=== PATIENT | male | born 1940 | race Caucasian/White ===

== ENCOUNTER 2017-11-22 16:08 | Inpatient (IN) | payer MEDICARE ==
[~2017-11-22] VITALS: Ht 165.1 cm; Wt 70.8 kg
--- NOTE | 2017-11-22 16:38 | NUR ---
PATIENT IS AWAKE AND ALERT. HE IS COOPERATIVE AT THIS TIME. DENIES PAIN.
[2017-11-22 17:12] LABS: BASOPHILS # (AUTO) 0.1 K/uL (0.0-8.0); EOSINOPHILS # (AUTO) 0.1 K/uL (0.0-0.7); HEMATOCRIT 38.3 % (36.7-47.1); HEMOGLOBIN 12.9 g/dL (12.5-16.3); LYMPHOCYTES % (AUTO) 27.2 % (20.5-51.5); MEAN CORPUSCULAR HGB CONC 34 g/dL (32.5-36.3); MEAN CORPUSCULAR VOLUME 98.2 fL (73.0-96.2); MONOCYTES # (AUTO) 0.5 K/uL (2.0-10.0); MONOCYTES % (AUTO) 7.4 % (0.0-11.0); NEUTROPHILS # (AUTO) 4.6 K/uL (1.8-8.9); NEUTROPHILS % (AUTO) 62.4 % (38.5-71.5); PLATELET COUNT (AUTO) 240 K/uL (152-348); WHITE BLOOD COUNT (AUTO) 7.3 K/uL (3.6-10.2)
[2017-11-22 17:21] LABS: ETHANOL < 3 MG/DL (0-0)
--- NOTE | 2017-11-22 17:22 | NUR ---
AWAITING TEST RESULTS.
[2017-11-22 17:25] LABS: CARBON DIOXIDE 29 mmol/L (21-32); CHLORIDE 101 mmol/L (98-107); CREATININE 1.2 mg/dL (0.6-1.3); GLUCOSE 101 mg/dL (74-106); POTASSIUM 4.9 mmol/L (3.5-5.1); UREA NITROGEN, BLOOD 17 mg/dL (7-18)
[2017-11-22 17:37] LABS: ACETAMINOPHEN < 2.0 ug/mL (10-30); ALANINE AMINOTRANSFERASE 17 U/L (16-63); ALKALINE PHOSPHATASE 70 U/L (50-136); ASPARTATE AMINOTRANSFERASE 17 U/L (15-37); BILIRUBIN,DIRECT 0.1 mg/dL (0.0-0.2); BILIRUBIN,TOTAL 0.2 mg/dL (0.2-1.0)
[2017-11-22] MEDS ORDERED: MELA3TAB PO (17:50)
[2017-11-22] MEDS ORDERED: DONE10TA44 PO (17:50)
[2017-11-22] MEDS ORDERED: ACET325T53 PO (17:50)
[2017-11-22] MEDS ORDERED: BISA10SU12 RC (17:50)
[2017-11-22] MEDS ORDERED: ASPI81TA31 PO (17:50)
[2017-11-22] MEDS ORDERED: THIA100T13 PO (17:50)
[2017-11-22] MEDS ORDERED: HYDR-3326 PO (17:50)
[2017-11-22] MEDS ORDERED: CLON0.1T PO (17:50)
[2017-11-22] MEDS ORDERED: SIMV40TA5 PO (17:50)
[2017-11-22] MEDS ORDERED: LISI10TA5 PO (17:50)
[2017-11-22] MEDS ORDERED: FOLI1TAB16 PO (17:50)
[2017-11-22] MEDS ORDERED: LAMO150T PO (17:50)
[2017-11-22] MEDS ORDERED: LEVE500T20 PO (17:50)
[2017-11-22] MEDS ORDERED: MAGN400O6 PO (17:50)
[2017-11-22 18:31] LABS: *BILIRUBIN,URIN NEGATIVE (NEGATIVE); *BLOOD, URINE NEGATIVE (NEGATIVE); *CLARITY,URINE CLEAR (CLEAR); *COLOR,URINE YELLOW (YELLOW); *KETONES,URINE NEGATIVE (NEGATIVE); *PROTEIN,URINE NEGATIVE (NEGATIVE); *UROBILINOGEN,URINE 0.2 E.U./dl (NORMAL); LEUKOCYTE ESTERASE ,URINE NEGATIVE (NEGATIVE); NITRITE, URINE NEGATIVE (NEGATIVE); PH,URINE 6.5 (5.0-8.0); UGLUCOSE NEGATIVE (NEGATIVE)
--- NOTE | 2017-11-22 18:33 | NUR ---
CLINTON REYES MORPHOLOGIST HERE FOR EVAL. PATIENT ATE DINNER.
[2017-11-22 18:48] LABS: *AMPHETAMINE, URINE NEGATIVE (NEGATIVE); *BARBITURATE, URINE NEGATIVE (NEGATIVE); *CANNABINOID, URINE POSITIVE (NEGATIVE); *COCCAINE, URINE NEGATIVE (NEGATIVE); *OPIATE, URINE POSITIVE (NEGATIVE); *PHENCYCLIDINE SCREEN,URINE NEGATIVE (NEGATIVE)
--- NOTE | 2017-11-22 19:06 | NUR ---
HANDOFF REPORT GIVEN TO VANDANA PAGE
[2017-11-22 19:25] LABS: BACTERIA,URINE NONE SEEN /HPF (NONE SEEN); RBC,URINE 0-3 /HPF (0-3); SQUAMOUS EPITHELIAL CELL,UR NONE SEEN /HPF (NONE SEEN); WBC,URINE 0-3 /HPF (0-3)
--- NOTE | 2017-11-22 19:40 | NUR ---
Report given to [facility].
[2017-11-22] MEDS ORDERED: ACETAMINOPHEN 325 MG TABLET PO PRN (20:15)
[2017-11-22] MEDS ORDERED: MAGNESIUM HYDROXIDE 30 ML LIQUID UDC PO PRN (20:15)
[2017-11-22] MEDS ORDERED: MAG HYDROX/AL HYDROX/SIMETH 30 ML LIQUID UDC PO PRN (20:15)
[2017-11-22 21:01] VITALS: BP 140/70
[2017-11-22] MEDS: LEVETIRACETAM 500 MG TABLET PO SCH (21:40)
[2017-11-22] MEDS: TEMAZEPAM 7.5 MG CAPSULE PO PRN (21:40)
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
--- NOTE | 2017-11-23 06:00 | NUR ---
slept 6.5 hours. came to nurses station, appearing angry, demanding his "papers i had in my pocket". "if i dont gety it, i will tear this place up". papers were founfd in his nightstand, and he deescalated.
[2017-11-23 07:30] VITALS: BP 120/61
[2017-11-23] MEDS: NICOTINE 21 MG/24HR PATCH TD SCH (07:32)
[2017-11-23] MEDS ORDERED: CLONIDINE HCL 0.1 MG TABLET PO PRN (08:30)
[2017-11-23] MEDS ORDERED: MAGNESIUM HYDROXIDE 30 ML LIQUID UDC PO PRN (08:30)
[2017-11-23] MEDS ORDERED: HYDROCODONE/APAP 5-325MG TABLET PO PRN (08:30)
[2017-11-23] MEDS ORDERED: BISACODYL 10 MG SUPP.RECT RC PRN (08:30)
[2017-11-23] MEDS ORDERED: ACETAMINOPHEN 325 MG TABLET PO PRN ×2 (08:30)
[2017-11-23] MEDS ORDERED: LEVETIRACETAM 500 MG TABLET PO SCH (09:00)
[2017-11-23] MEDS: ASPIRIN 81 MG TAB.CHEW PO SCH (10:39)
[2017-11-23] MEDS: FOLIC ACID 1 MG TABLET PO SCH (10:40)
[2017-11-23] MEDS: LISINOPRIL 10 MG TABLET PO SCH (10:40)
[2017-11-23] MEDS: LEVETIRACETAM 500 MG TABLET PO SCH ×2 (10:40→20:32)
[2017-11-23] MEDS: THIAMINE HCL 100 MG TABLET PO SCH (10:41)
[2017-11-23] MEDS: LAMOTRIGINE 100 MG TABLET PO SCH ×2 (12:32→20:33)
[2017-11-23 14:55] VITALS: BP 110/57
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
--- NOTE | 2017-11-23 17:51 | NUR ---
Gps/Child Development Assistant- Cooperative, pleasant had been re directable, interacting with his roommate.
[2017-11-23] MEDS ORDERED: NICOTINE 21 MG/24HR PATCH TD ONE (18:46)
[2017-11-23] MEDS: MIRTAZAPINE 15 MG TABLET PO SCH (20:33)
[2017-11-23] MEDS: SIMVASTATIN 40 MG TABLET PO SCH (20:33)
[2017-11-23 21:55] VITALS: BP 92/56
--- NOTE | 2017-11-23 22:00 | NUR ---
received to care, pleasant upon approach, interacting minimally with peers, mostly isolative. compliant with medications and staff direction. as of 2199, he appears to be asleep. no distress noted. will continue to monitor closely.
[2017-11-24] MEDS: TEMAZEPAM 7.5 MG CAPSULE PO PRN ×2 (00:20→23:56)
--- NOTE | 2017-11-24 00:20 | NUR ---
PRN restoril given, for insomnia.
--- NOTE | 2017-11-24 03:00 | NUR ---
pt came out to nurses station, requesting beer. pt was told that we don't serve alcohol here, but he could have some apple juice. he then asked "where am i ?" he was reoriented, and he said he just had a dream and thought people were after him. he went back to his room, and went back to bed.
--- NOTE | 2017-11-24 03:30 | NUR ---
appears to be asleep. no distress noted.
--- NOTE | 2017-11-24 06:00 | NUR ---
slept 8.5 hours, total. continues to sleep. no distress noted.
[2017-11-24 07:30] VITALS: BP 124/65
[2017-11-24] MEDS: THIAMINE HCL 100 MG TABLET PO SCH (08:48)
[2017-11-24] MEDS: LEVETIRACETAM 500 MG TABLET PO SCH ×2 (08:48→20:25)
[2017-11-24] MEDS: ASPIRIN 81 MG TAB.CHEW PO SCH (08:48)
[2017-11-24] MEDS: FOLIC ACID 1 MG TABLET PO SCH (08:48)
[2017-11-24] MEDS: LAMOTRIGINE 100 MG TABLET PO SCH ×2 (08:49→20:25)
[2017-11-24] MEDS: LISINOPRIL 10 MG TABLET PO SCH (08:49)
[2017-11-24] MEDS: NICOTINE 21 MG/24HR PATCH TD SCH (08:50)
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
[2017-11-24] MEDS: LORAZEPAM 0.5 MG TABLET PO PRN (15:18)
--- NOTE | 2017-11-24 15:22 | NUR ---
Gps/Ring Cutter Lathe Operator-Admits to being anxious this pm, requesting anti-anxiety med., ativan 0.5 mg 1 tab reoffered.
[2017-11-24 15:33] VITALS: BP 128/66
[2017-11-24] MEDS: SIMVASTATIN 40 MG TABLET PO SCH (20:24)
[2017-11-24] MEDS: MIRTAZAPINE 15 MG TABLET PO SCH (20:25)
[2017-11-24 21:11] VITALS: BP 108/63
[2017-11-25] MEDS: LORAZEPAM 0.5 MG TABLET PO PRN (06:32)
[2017-11-25 07:30] VITALS: BP 104/71
--- NOTE | 2017-11-25 07:30 | NUR ---
Shift report given by nightshift RN. Pt without significant change in condition during noc shift. Rec'd pt awake, watching TV in the dayroom. No s/s of acute distress noted. Irritable on approach. Complaining about breakfast not being delivered yet. Reassured pt that breakfast is on the way. Pt became more agitated. Will continue to monitor for further behavioral manifestations.
[2017-11-25] MEDS: FOLIC ACID 1 MG TABLET PO SCH (08:29)
[2017-11-25] MEDS: ASPIRIN 81 MG TAB.CHEW PO SCH (08:29)
[2017-11-25] MEDS: LEVETIRACETAM 500 MG TABLET PO SCH ×2 (08:29→20:09)
[2017-11-25] MEDS: LAMOTRIGINE 100 MG TABLET PO SCH ×2 (08:30→20:08)
[2017-11-25] MEDS: NICOTINE 21 MG/24HR PATCH TD SCH (08:32)
[2017-11-25] MEDS: THIAMINE HCL 100 MG TABLET PO SCH (08:32)
[2017-11-25] MEDS: LISINOPRIL 10 MG TABLET PO SCH (08:40)
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
--- NOTE | 2017-11-25 18:42 | NUR ---
Pt remained in fair condition during shift. No significant change in condition. Took all due meds. Noted with x1 episode of agitation in am when pt was looking for his breakfast tray. No further episode of agitation noted. Pt was up in dayroom participating in activities of choice for the day. Interacts well with peers. Denies pain. All needs met at this time. Will continue to monitor for change.
[2017-11-25 20:00] VITALS: BP 113/65
[2017-11-25] MEDS: MIRTAZAPINE 15 MG TABLET PO SCH (20:08)
[2017-11-25] MEDS: SIMVASTATIN 40 MG TABLET PO SCH (20:08)
[2017-11-25] MEDS: TEMAZEPAM 7.5 MG CAPSULE PO PRN (22:06)
[2017-11-26 07:30] VITALS: BP 156/76
[2017-11-26] MEDS: LEVETIRACETAM 500 MG TABLET PO SCH ×2 (08:50→20:02)
[2017-11-26] MEDS: NICOTINE 21 MG/24HR PATCH TD SCH (08:50)
[2017-11-26] MEDS: ASPIRIN 81 MG TAB.CHEW PO SCH (08:51)
[2017-11-26] MEDS: LISINOPRIL 10 MG TABLET PO SCH (08:51)
[2017-11-26] MEDS: FOLIC ACID 1 MG TABLET PO SCH (08:51)
[2017-11-26] MEDS: THIAMINE HCL 100 MG TABLET PO SCH (08:51)
[2017-11-26] MEDS: LAMOTRIGINE 100 MG TABLET PO SCH ×2 (08:51→20:02)
[2017-11-26 16:20] VITALS: BP 100/53
[2017-11-26 19:49] VITALS: BP 90/46
--- NOTE | 2017-11-26 19:50 | NUR ---
Received patient in bed, asleep but arouseable to stimuli. A/O x3, cooperative and no agitations noted. Vitals signs taken and recorded. BP 90/46 noted will recheck later. Safety precautions provided. Pertinent assessment done. Will continue to monitor the patient.
[2017-11-26] MEDS: MIRTAZAPINE 15 MG TABLET PO SCH (20:01)
[2017-11-26] MEDS: SIMVASTATIN 40 MG TABLET PO SCH (20:02)
[2017-11-26 20:21] VITALS: BP 102/54
[2017-11-26] MEDS: TEMAZEPAM 7.5 MG CAPSULE PO PRN (23:17)
[2017-11-27 07:59] VITALS: BP 119/62
[2017-11-27] MEDS: NICOTINE 21 MG/24HR PATCH TD SCH (08:11)
[2017-11-27] MEDS: LEVETIRACETAM 500 MG TABLET PO SCH ×2 (08:11→20:09)
[2017-11-27] MEDS: LAMOTRIGINE 100 MG TABLET PO SCH ×2 (08:12→20:09)
[2017-11-27] MEDS: THIAMINE HCL 100 MG TABLET PO SCH (08:12)
[2017-11-27] MEDS: LISINOPRIL 10 MG TABLET PO SCH (08:12)
[2017-11-27] MEDS: ASPIRIN 81 MG TAB.CHEW PO SCH (08:12)
[2017-11-27] MEDS: FOLIC ACID 1 MG TABLET PO SCH (08:12)
[2017-11-27 16:46] VITALS: BP 107/55
[2017-11-27 19:45] VITALS: BP 105/59
[2017-11-27] MEDS: SIMVASTATIN 40 MG TABLET PO SCH (20:09)
[2017-11-27] MEDS: MIRTAZAPINE 15 MG TABLET PO SCH (20:09)
[2017-11-28 07:30] VITALS: BP 137/69
[2017-11-28] MEDS: LEVETIRACETAM 500 MG TABLET PO SCH (09:05)
[2017-11-28] MEDS: ASPIRIN 81 MG TAB.CHEW PO SCH (09:05)
[2017-11-28] MEDS: FOLIC ACID 1 MG TABLET PO SCH (09:05)
[2017-11-28] MEDS: LAMOTRIGINE 100 MG TABLET PO SCH (09:05)
[2017-11-28] MEDS: THIAMINE HCL 100 MG TABLET PO SCH (09:05)
[2017-11-28] MEDS: NICOTINE 21 MG/24HR PATCH TD SCH (09:06)
[2017-11-28] MEDS: LISINOPRIL 10 MG TABLET PO SCH (09:06)
--- NOTE | 2017-11-28 10:04 | NUR ---
DC Note: Patient will be discharged to [facility] [[address] [place] [address]; ] via ambulance. DYLAN spoke with Coral and Alen from [facility] to confirm discharge plans. Patient is alert and oriented x4 and denies SI and HI. Patient is aware and agreeable to discharge plans. DYLAN spoke with patient's son Maged [[phone]] who is aware and agreeable to discharge plans. Patient will follow up with Dr. Smith (District Operations Manager) and Dr. Sinha (Psychiatrist) at the facility. Patient was provided a brief substance abuse intervention for alcohol abuse and was provided with substance abuse referrals for [facility] [[address] [place] [address], ], [facility] [[address] [place] [address]], and [facility] [[address] [place] [address], ].
[2017-11-28 15:52] VITALS: BP 130/56
--- NOTE | 2017-11-28 16:30 | NUR ---
GPS: Nursing Notes: Discharge Notes: Patient is awake and responding to his name, cooperative with nursing care, compliant with his medications, following staff directions, denies any SI/HI, denies any AH/VH, denies any pain or discomfort, denies any SOB, discharge to [facility] at [address], [place] [id number] , report given to Nelda charge nurse, transported to facility via ambulance. b and b gang worker spoke with patient's son Maged [[phone]] who is aware and agreeable to discharge plans. Patient will follow up with Dr. Smith (Char Filter Tank Tender) and Dr. Sinha (Psychiatrist) at the facility. Patient was provided a brief substance abuse intervention for alcohol abuse and was provided with substance abuse referrals for [facility] [[address] [place] [address], ], [facility] [[address] [place] [address]], and [facility] [[address] [place] [address], ].
== END 2017-11-28 16:30 | DRG 885 ==
LOC: ER 16:08 → GPS 19:51
PROVIDERS: ADMIT Psychiatry & Neurology Psychosomatic Medicine; ATTEND Internal Medicine
DX: F31.9 Bipolar disorder, unspecified (principal); F03.91 Unspecified dementia, unspecified severity, with behavioral disturbance; G40.909 Epilepsy, unspecified, not intractable, without status epilepticus; E78.5 Hyperlipidemia, unspecified; F17.210 Nicotine dependence, cigarettes, uncomplicated; F10.10 Alcohol abuse, uncomplicated; D50.9 Iron deficiency anemia, unspecified; Z65.3 Problems related to other legal circumstances; Z79.82 Long term (current) use of aspirin; Z79.899 Other long term (current) drug therapy; I10 Essential (primary) hypertension
CPT/HCPCS: 36415; 71045; 80307; 85025; 93005; A4663; G0480; G0480-TC